=== PATIENT | female | born 1980 | race Caucasian/White ===

== ENCOUNTER 2020-05-19 10:47 | Outpatient (REF) | payer OTHER, SELFPAY ==
--- NOTE | ~2020-05-19 | XR_ITS ---
EXAMINATION: XR KNEE, BILATERAL XR KNEE, LEFT XR KNEE, RIGHT CLINICAL INFORMATION: Pain in the knees COMPARISON: 03/25/2014 TECHNIQUE: AP standing view of both knees. Lateral and sunrise views of both knees. FINDINGS: Left knee: No fracture or subluxation. Compartmental joint spaces are maintained. There are small marginal osteophytes at all compartments, increased from 2014. There is no joint effusion. The soft tissues are unremarkable. Right knee: No fracture or subluxation. Mild medial compartment joint space narrowing with small tricompartmental marginal osteophytes, increased from prior. Moderate joint effusion noted. The soft tissues are unremarkable. XR/XR knee standing BI IMPRESSION: Moderate right knee joint effusion. Mild tricompartmental degenerative changes of both knees, increased from 2014.
--- NOTE | ~2020-05-19 | XR_ITS ---
EXAMINATION: XR KNEE, BILATERAL XR KNEE, LEFT XR KNEE, RIGHT CLINICAL INFORMATION: Pain in the knees COMPARISON: 03/25/2014 TECHNIQUE: AP standing view of both knees. Lateral and sunrise views of both knees. FINDINGS: Left knee: No fracture or subluxation. Compartmental joint spaces are maintained. There are small marginal osteophytes at all compartments, increased from 2014. There is no joint effusion. The soft tissues are unremarkable. Right knee: No fracture or subluxation. Mild medial compartment joint space narrowing with small tricompartmental marginal osteophytes, increased from prior. Moderate joint effusion noted. The soft tissues are unremarkable. XR/XR knee LT 2V IMPRESSION: Moderate right knee joint effusion. Mild tricompartmental degenerative changes of both knees, increased from 2014.
--- NOTE | ~2020-05-19 | XR_ITS ---
EXAMINATION: XR PELVIS CLINICAL INFORMATION: Pain in the hip COMPARISON: 03/25/2014 TECHNIQUE: AP view of the pelvis. FINDINGS: No fracture or dislocation. The femoral heads are well-seated within their acetabula. Moderate to severe degenerative changes of the right hip have progressed since 2013 with joint space narrowing, sclerosis, and osteophyte formation. There are also progressive mild to moderate degenerative changes of the left hip with narrowing, sclerosis, and osteophyte formation. The pelvic rim is intact. The sacroiliac joints and pubic symphysis are intact. The bowel gas pattern is unremarkable. XR/XR pelvis 1-2V IMPRESSION: Progressive degenerative changes of both hips. Moderate to severe on the right and mild to moderate on the left.
--- NOTE | ~2020-05-19 | XR_ITS ---
EXAMINATION: XR KNEE, BILATERAL XR KNEE, LEFT XR KNEE, RIGHT CLINICAL INFORMATION: Pain in the knees COMPARISON: 03/25/2014 TECHNIQUE: AP standing view of both knees. Lateral and sunrise views of both knees. FINDINGS: Left knee: No fracture or subluxation. Compartmental joint spaces are maintained. There are small marginal osteophytes at all compartments, increased from 2014. There is no joint effusion. The soft tissues are unremarkable. Right knee: No fracture or subluxation. Mild medial compartment joint space narrowing with small tricompartmental marginal osteophytes, increased from prior. Moderate joint effusion noted. The soft tissues are unremarkable. XR/XR knee RT 2V IMPRESSION: Moderate right knee joint effusion. Mild tricompartmental degenerative changes of both knees, increased from 2014.
== END 2020-05-19 10:48 | disposition home or self-care (01) ==
LOC: HO.HOSX 10:47
PROVIDERS: PCP Internal Medicine; Visit Provider Orthopaedic Surgery
DX: M17.0 Bilateral primary osteoarthritis of knee (principal); M16.0 Bilateral primary osteoarthritis of hip; E66.9 Obesity, unspecified; E03.9 Hypothyroidism, unspecified
CPT/HCPCS: 20610; 72170; 73560; 73565; J1100

== ENCOUNTER → 2020-06-16 11:18 | Outpatient (BNVA) | payer OTHER, SELFPAY | PROVIDERS: Visit Provider Orthopaedic Surgery ==

== ENCOUNTER → 2020-06-30 09:29 | Outpatient (BNVA) | payer OTHER, SELFPAY | PROVIDERS: PCP Internal Medicine; Visit Provider Orthopaedic Surgery ==

== ENCOUNTER 2020-07-07 19:07 | Outpatient (REF) | payer OTHER, SELFPAY ==
--- NOTE | ~2020-07-07 | MR_ITS ---
EXAMINATION: MR KNEE WITHOUT CONTRAST, RIGHT CLINICAL INFORMATION: Right knee pain and swelling. Sharp patellar pain. Progressive worsening. Internal derangement. COMPARISON: Right knee radiographs dated 05/19/2020 TECHNIQUE: MRI of the knee without contrast was performed using routine sequences on a high-field scanner. FINDINGS: MENISCI: Medial Meniscus: Possible inner margin fraying of the posterior root. Lateral Meniscus: Intact LIGAMENTS: Cruciate: Intact Collateral: Intact EXTENSOR MECHANISM: Intact ARTICULAR CARTILAGE/BONE: Patellofemoral Compartment: Patellar median ridge full-thickness articular cartilage fissuring with associated delamination measuring up to 0.6 cm in ML dimension. Medial and lateral patellar facet articular cartilage signal heterogeneity. Diffuse trochlear articular cartilage signal heterogeneity with high-grade to full-thickness loss of the central trochlea measuring 1.0 cm in ML dimension. Tiny marginal osteophytes. Medial Compartment: Diffuse weightbearing medial femoral condyle and medial tibial plateau articular cartilage thinning and surface irregularity with tiny foci of full-thickness fissuring. Small marginal osteophytes. Bone islands within the medial femoral condyle. Lateral Compartment: Diffuse articular cartilage signal heterogeneity and surface irregularity. Tiny marginal osteophytes. JOINT FLUID AND BURSAE: [id number] joint effusion and mild synovitis. Trace Ureña's cyst. MR/MR knee RT wo con IMPRESSION: 1. Possible inner margin fraying of the medial meniscus posterior root. 2. [id number] patellofemoral as well as more mild medial and lateral compartment osteoarthritis. 3. [id number] joint effusion with mild synovitis. Trace Ureña's cyst.
== END 2020-07-07 19:08 | disposition home or self-care (01) ==
LOC: HO.MRI 19:07
PROVIDERS: PCP Internal Medicine; Visit Provider Orthopaedic Surgery
DX: M23.91 Unspecified internal derangement of right knee (principal)
CPT/HCPCS: 73721

== ENCOUNTER → 2020-07-18 13:38 | Outpatient (BNVA) | payer OTHER, SELFPAY | PROVIDERS: PCP Internal Medicine; Visit Provider Orthopaedic Surgery ==

== ENCOUNTER → 2020-08-03 14:14 | Outpatient (BNVA) | payer OTHER, SELFPAY | PROVIDERS: PCP Internal Medicine; Visit Provider Nurse Practitioner Family ==

== ENCOUNTER → 2020-10-31 11:49 | Outpatient (BNVA) | payer OTHER, SELFPAY | PROVIDERS: PCP Internal Medicine; Visit Provider Orthopaedic Surgery ==